=== PATIENT | female | born 1960 | race Caucasian/White ===

== ENCOUNTER 2020-08-12 17:36 | Emergency (ER) | payer MEDICAID ==
[2020-08-12] MEDS ORDERED: ONDANSETRON 4 MG/2 ML VIAL IVP STA (18:11)
[2020-08-12] MEDS ORDERED: SODIUM CHLORIDE 0.9% 1,000 ML IV STA ×2 (18:11→20:29)
[2020-08-12] MEDS ORDERED: HYDROmorphone 1 MG/ML CARPUJECT IVP STA (18:11)
--- NOTE | 2020-08-12 18:14 | ED Physician Documentation ---
PD HPI ABD PAIN - Stated complaint Stated Complaint: SOA/BLOODY STOOL - Chief complaint Chief Complaint: Abd Pain - History obtained from History obtained from: Patient - Additional information Additional information: 60-year-old woman with history of COPD and IBS presents with about a 3 to 4-day illness. It started with mucus in her chest and shortness of breath. She no longer has the mucus, but still feels short of breath. There is no cough. Because of the mucus she has not been able to smoke much. Then over the last 2 days has developed diffuse abdominal pain with a small slightly bloody stools and one episode of emesis today. She denies fevers but has had sweats and chills. Review of Systems Ten Systems: 10 systems reviewed and negative Constitutional: reports: Chills, Fatigue, Sweats. denies: Fever Nose: denies: Rhinorrhea / runny nose, Congestion Throat: denies: Sore throat Cardiac: denies: Chest pain / pressure, Palpitations Respiratory: reports: Dyspnea, Cough. denies: Hemoptysis, Wheezing GI: reports: Abdominal Pain, Nausea, Diarrhea, Bloody / black stool PD PAST MEDICAL HISTORY - Past Medical History Past Medical History: Yes Respiratory: COPD GI: Other (IBS) - Present Medications Home Medications: Ambulatory Orders Medication Instructions Recorded Confirmed Ondansetron Odt [Zofran] 4 mg TL Q6H PRN #10 tab 08/12/20 dexAMETHasone [Decadron] 4 mg PO DAILY #5 tab 08/12/20 - Allergies Allergies/Adverse Reactions: Allergies Allergy/AdvReac Type Severity Reaction Status Date / Time metronidazole [From Flagyl] Allergy Unknown Verified 08/12/20 18:09 Sulfa (Sulfonamide Allergy Unknown Verified 08/12/20 18:09 Antibiotics) - Living Situation Living Situation: reports: Alone - Social History Smoking Status: Current every day smoker - Family History Family history: reports: Non contributory PD ED PE NORMAL - Vitals Vital signs reviewed: Yes - General General: Alert and oriented X 3, No acute distress - HEENT HEENT: PERRL, EOMI - Neck Neck: Supple, no meningeal sign, No bony TTP - Cardiac Cardiac: RRR, No murmur - Respiratory Respiratory: No respiratory distress, Clear bilaterally - Abdomen Abdomen: Soft, Non tender, Other (no bowel tones) - Back Back: No CVA TTP, No spinal TTP - Derm Derm: Normal color, Warm and dry - Extremities Extremities: No edema, No calf tenderness / cord - Neuro Neuro: Alert and oriented X 3, Normal speech Results - Vitals Vitals: Vital Signs - 24 hr 08/12/20 08/12/20 08/12/20 17:46 19:49 21:00 Temperature 37.0 C 36.6 C 36.6 C Heart Rate 76 67 66 Respiratory 24 24 22 Rate Blood Pressure 130/90 H 125/73 124/72 O2 Saturation 100 100 100 08/12/20 21:34 Temperature 36.8 C Heart Rate 66 Respiratory 12 Rate Blood Pressure 130/61 O2 Saturation 98 Oxygen O2 Source Room air - EKG (time done) 1810 Rate: Rate (enter#) (66) Rhythm: NSR [place]: Normal QRS: Normal Ischemia: Normal ST segments - Labs Labs: Laboratory Tests 08/12/20 08/12/20 08/12/20 18:05 18:05 18:05 WBC 10.6 RBC 4.46 Hgb 14.0 Hct 41.8 MCV 93.7 MCH 31.4 H MCHC 33.5 RDW 13.9 Plt Count 387 MPV 10.7 Neut # (Auto) 6.1 Lymph # (Auto) 3.5 [place] # (Auto) 1.0 Eos # (Auto) 0.0 Baso # (Auto) 0.1 Absolute Nucleated RBC 0.00 Nucleated RBC % 0.0 Sodium 135 Potassium 3.5 Chloride 102 Carbon Dioxide 21 Anion Gap 12.0 BUN 10 Creatinine 1.0 Estimated GFR (MDRD) 56 L Glucose 118 H Lactic Acid Calcium 9.2 Total Bilirubin 0.8 AST 38 ALT 29 Alkaline Phosphatase 76 Troponin I High Sens B-Natriuretic Peptide 36 Total Protein 7.3 Albumin 4.2 Globulin 3.1 Albumin/Globulin Ratio 1.4 Lipase 22 Nasal Adenovirus (PCR) Nasal B. parapertussis DNA (PCR) Nasal Coronavir 229E PCR Nasal Coronavir HKU1 PCR Nasal Coronavir NL63 PCR Nasal Coronavir OC43 PCR Nasal Enterovir/Rhinovir PCR Nasal Influenza B PCR Nasal Influenza A PCR Nasal Parainfluen 1 PCR Nasal Parainfluen 2 PCR Nasal Parainfluen 3 PCR Nasal Parainfluen 4 PCR Nasal RSV (PCR) Nasal B.pertussis DNA PCR Nasal C.pneumoniae (PCR) Narinder Human Metapneumo PCR Nasal M.pneumoniae (PCR) Nasal SARS-CoV-2 (PCR) 08/12/20 08/12/20 08/12/20 18:05 18:24 18:38 WBC RBC Hgb Hct MCV MCH MCHC RDW Plt Count MPV Neut # (Auto) Lymph # (Auto) [place] # (Auto) Eos # (Auto) Baso # (Auto) Absolute Nucleated RBC Nucleated RBC % Sodium Potassium Chloride Carbon Dioxide Anion Gap BUN Creatinine Estimated GFR (MDRD) Glucose Lactic Acid 2.0 Calcium Total Bilirubin AST ALT Alkaline Phosphatase Troponin I High Sens 3.0 B-Natriuretic Peptide Total Protein Albumin Globulin Albumin/Globulin Ratio Lipase Nasal Adenovirus (PCR) NOT DETECTED Nasal B. parapertussis DNA (PCR) NOT DETECTED Nasal Coronavir 229E PCR NOT DETECTED Nasal Coronavir HKU1 PCR NOT DETECTED Nasal Coronavir NL63 PCR NOT DETECTED Nasal Coronavir OC43 PCR NOT DETECTED Nasal Enterovir/Rhinovir PCR NOT DETECTED Nasal Influenza B PCR NOT DETECTED Nasal Influenza A PCR NOT DETECTED Nasal Parainfluen 1 PCR NOT DETECTED Nasal Parainfluen 2 PCR NOT DETECTED Nasal Parainfluen 3 PCR NOT DETECTED Nasal Parainfluen 4 PCR NOT DETECTED Nasal RSV (PCR) NOT DETECTED Nasal B.pertussis DNA PCR NOT DETECTED Nasal C.pneumoniae (PCR) NOT DETECTED Narinder Human Metapneumo PCR NOT DETECTED Nasal M.pneumoniae (PCR) NOT DETECTED Nasal SARS-CoV-2 (PCR) NOT DETECTED PD MEDICAL DECISION MAKING - ED course ED course: She presents with shortness of breath, small bloody stools. Her lungs are surprisingly clear despite the diagnosis of COPD. Her abdominal examination is nontender, but bowel sounds are seemingly absent on initial evaluation. Differential diagnosis is broad and includes diverticulitis, colitis, gastroenteritis, small bowel obstruction. I am also worried about PE given that she seems somewhat breathless but has normal breath sounds without wheezing or rhonchi.+ Care to Dr Álvarez at shift change to reeval and f/u on diagnostics. Departure - Departure Disposition: 01 Home, Self Care Clinical Impression: Dehydration, Irritable bowel syndrome Condition: Stable Instructions: ED Dehydration, ED IBS Follow-Up: Telly Miller ARNP [Primary Care Provider] - Prescriptions: dexAMETHasone [Decadron] 4 mg PO DAILY #5 tab Ondansetron Odt [Zofran] 4 mg TL Q6H PRN #10 tab PRN Reason: Nausea / Vomiting Comments: Your symptoms of smoldering abdominal pain and loose stools over the past month are concerning for the possibility of inflammatory bowel disease and the recommendation is that you have a colonoscopy done in follow-up. Discharge Date/Time: 08/12/20 21:52
[2020-08-12 18:17] LABS: BASOPHILS # (AUTO) 0.1 10^3/uL (0.0-0.1); BASOPHILS % (AUTO) 0.6 %; EOSINOPHILS % (AUTO) 0.4 %; LYMPHOCYTES # (AUTO) 3.5 10^3/uL (1.5-3.5); LYMPHOCYTES % (AUTO) 32.5 %; MEAN CORPUSCULAR HEMOGLOBIN 31.4 pg (27.0-31.0); MEAN CORPUSCULAR HGB CONC 33.5 g/dL (32.0-36.0); MEAN CORPUSCULAR VOLUME 93.7 fL (81.0-99.0); MEAN PLATELET VOLUME 10.7 fL (7.9-10.8); NEUTROPHILS # (AUTO) 6.1 10^3/uL (1.5-6.6); NEUTROPHILS % (AUTO) 57.1 %; PLT - PLATELET COUNT 387 10^3/uL (130-450); RED BLOOD COUNT 4.46 10^6/uL (4.20-5.40); RED CELL DISTRIBUTION WIDTH 13.9 % (12.0-15.0); WHITE BLOOD COUNT 10.6 x10^3/uL (4.8-10.8)
[2020-08-12 18:25] LABS: ALBUMIN 4.2 g/dL (3.2-5.5); ALBUMIN/GLOBULIN RATIO 1.4 (1.0-2.2); BILIRUBIN,TOTAL 0.8 mg/dL (0.2-1.0); CALCIUM 9.2 mg/dL (8.5-10.3); TOTAL PROTEIN 7.3 g/dL (6.7-8.2)
--- NOTE | 2020-08-12 18:36 | XRAY Report ---
PROCEDURE: Chest 1 View X-Ray INDICATIONS: COPD TECHNIQUE: One view of the chest was acquired. COMPARISON: None. FINDINGS: Surgical changes and devices: None. Lungs and pleura: No pleural effusions or pneumothorax. No consolidative opacity. Diffuse increased interstitial markings. Prominent lung volumes. Mediastinum: Mediastinal contours appear normal. Heart size is within normal limits. Bones and chest wall: No suspicious bony lesions. Overlying soft tissues appear unremarkable. IMPRESSION: No acute cardiopulmonary abnormality identified. Emphysematous change. Reviewed by: Kang Emerson MD on 08/12/2020 6:35 PM [facility] Approved by: Kang Emerson MD on 08/12/2020 6:35 PM [facility] Station ID: [id number]
[2020-08-12] MEDS ORDERED: IOVERSOL 320 100 ML VIAL IVP ONE ×2 (18:44→19:10)
--- NOTE | 2020-08-12 19:28 | CT Report ---
PROCEDURE: ANGIO CHEST W/WO INDICATIONS: dyspnea, pe protocol CONTRAST: IV CONTRAST: Optiray 320 ml: 100 PO CONTRAST: *NO PO CONTRAST TECHNIQUE: After the administration of intravenous contrast, 2 mm thick sections acquired from the pulmonary api rashid to the posterior costophrenic angles. 3-dimensional maximum intensity projection (MIP) coronal a nd sagittal reformats were then acquired through the thorax. For radiation dose reduction, the follow ing was used: automated exposure control, adjustment of mA and/or kV according to patient size. COMPARISON: Same day CXR and CT abdomen and pelvis with IV contrast. FINDINGS: Image quality: Excellent. Pulmonary arteries: Pulmonary arteries are normal in size, and demonstrate no intraluminal filling d efects to suggest central pulmonary embolism. Lungs and pleura: Subtle background of nodular opacity most pronounced in the upper lobes. For exampl e right upper lobe 3 mm, (); right upper lobe 4 mm, (). No significant emphysematous change a ppreciated. Small cysts in the right lower lobe. No pleural effusions or pneumothorax. Central and p eripheral airways are patent. Mediastinum: Heart size is normal, without pericardial effusion. No mediastinal or hilar adenopathy . Thoracic aorta is normal in caliber and enhancement. Esophagus is normal in caliber, without hiat al hernia. Bones and chest wall: No suspicious bony lesions. Ribs and thoracic spine appear intact throughout. No axillary or supraclavicular adenopathy. Abdomen: Please see separately dictated same day CT abdomen and pelvis. IMPRESSION: 1. No pulmonary embolism. 2. Subtle background of small nodular opacities most pronounced in the upper lobes. This could be due to centrilobular nodules. This raises the possibility of infectious/inflammatory etiology. However, no ground glass opacity. 3. No pleural effusion. Reviewed by: Kang Emerson MD on 08/12/2020 7:26 PM [facility] Approved by: Kang Emerson MD on 08/12/2020 7:26 PM PST Station ID: [id number]
--- NOTE | 2020-08-12 19:34 | CT Report ---
PROCEDURE: Abdomen/Pelvis W INDICATIONS: IV only, diffuse abd pain CONTRAST: IV CONTRAST: Optiray 320 ml: 100 PO CONTRAST: *NO PO CONTRAST TECHNIQUE: After the administration of intravenous contrast, 5 mm thick sections acquired from the diaphragms to the symphysis. 5 mm thick coronal and sagittal reformats were acquired. For radiation dose reducti on, the following was used: automated exposure control, adjustment of mA and/or kV according to tawanna ent size. COMPARISON: Same day CT pulmonary angiogram FINDINGS: Image quality: Excellent. ABDOMEN: Lung bases: Lung bases are clear. Heart size is normal. Solid organs: Liver and spleen are normal in size and enhancement. Several well-circumscribed hepati c hypodense benign cysts. Gallbladder is distended. No calcified gallstones seen. Biliary system is non dilated. Pancreas enhances normally. The pancreatic duct in the head of the pancreas is mildly d ilated measuring 0.6 cm, (8/). The pancreatic duct in the tail is within normal limits. No adrenal nodules. Kidneys demonstrate normal size and enhancement, without hydronephrosis. Peritoneum and bowel: Bowel loops demonstrate normal wall thickness and caliber. A few colonic diver ticuli. Normal caliber of the retrocecal appendix. No free fluid or air. Nodes and vessels: No retroperitoneal or mesenteric adenopathy by size criteria. Aorta and inferior vena cava are normal in size. Miscellaneous: Tiny fat-containing periumbilical hernia. PELVIS: Genitourinary: Bladder wall thickness is normal. Uterus is surgically absent. Miscellaneous: No inguinal hernias or adenopathy. Bones: No suspicious bony lesions. No vertebral body compression fractures. IMPRESSION: 1. Distended gallbladder. No calcified gallstones. 2. Dilated pancreatic duct in the head of the pancreas. However the duct is not significantly dilated in the tail. The clinical significance of this finding is unknown. -MRCP may be helpful for further evaluation. 3. No bowel obstruction. No free fluid. A few colonic diverticuli without evidence of diverticulitis. Reviewed by: Kang Emerson MD on 08/12/2020 7:33 PM [facility] Approved by: Kang Emerson MD on 08/12/2020 7:33 PM [facility] Station ID: [id number]
[2020-08-12 19:46] LABS: C. PNEUMONIAE- RESP PCR PANEL NOT DETECTED
--- NOTE | 2020-08-12 20:57 | ED Physician Documentation ---
PD HPI ABD PAIN - Stated complaint Stated Complaint: SOA/BLOODY STOOL - Chief complaint Chief Complaint: Abd Pain - History obtained from History obtained from: Patient - History of Present Illness Timing - onset: How many days ago (4) Timing - duration: Days (4) Timing - details: Gradual onset, Still present Quality: Cramping, Sharp, Fullness/distended, Pain Location: All over / everywhere Improved by: Laying still Worsened by: Eating, Position, Palpation Associated symptoms: Nausea, Vomiting Similar symptoms before: No diagnosis Recently seen: Not recently seen - Additional information Additional information: 60 y/o female with a history of COPD and irritable bowel has developed abdominal pain nausea and diarrhea (loose stool only) over the past 4 days and has not been able to eat or drink. She arrives to the ED short of breath and in pain. She was worked up by Dr. Gaytan thoroughly including blood work and imaging. Her covid was negative, she did not have PE and she does not have obstruction, diverticulitis or obvious colitis on CT. PD PAST MEDICAL HISTORY - Present Medications Home Medications: Ambulatory Orders Medication Instructions Recorded Confirmed Ondansetron Odt [Zofran] 4 mg TL Q6H PRN #10 tab 08/12/20 dexAMETHasone [Decadron] 4 mg PO DAILY #5 tab 08/12/20 - Allergies Allergies/Adverse Reactions: Allergies Allergy/AdvReac Type Severity Reaction Status Date / Time metronidazole [From Flagyl] Allergy Unknown Verified 08/12/20 18:09 Sulfa (Sulfonamide Allergy Unknown Verified 08/12/20 18:09 Antibiotics) Results - Vitals Vitals: Vital Signs - 24 hr 08/12/20 08/12/20 08/12/20 17:46 19:49 21:00 Temperature 37.0 C 36.6 C 36.6 C Heart Rate 76 67 66 Respiratory 24 24 22 Rate Blood Pressure 130/90 H 125/73 124/72 O2 Saturation 100 100 100 Oxygen O2 Source Room air - Labs Labs: Laboratory Tests 08/12/20 08/12/20 08/12/20 18:05 18:05 18:05 WBC 10.6 RBC 4.46 Hgb 14.0 Hct 41.8 MCV 93.7 MCH 31.4 H MCHC 33.5 RDW 13.9 Plt Count 387 MPV 10.7 Neut # (Auto) 6.1 Lymph # (Auto) 3.5 [place] # (Auto) 1.0 Eos # (Auto) 0.0 Baso # (Auto) 0.1 Absolute Nucleated RBC 0.00 Nucleated RBC % 0.0 Sodium 135 Potassium 3.5 Chloride 102 Carbon Dioxide 21 Anion Gap 12.0 BUN 10 Creatinine 1.0 Estimated GFR (MDRD) 56 L Glucose 118 H Lactic Acid Calcium 9.2 Total Bilirubin 0.8 AST 38 ALT 29 Alkaline Phosphatase 76 Troponin I High Sens B-Natriuretic Peptide 36 Total Protein 7.3 Albumin 4.2 Globulin 3.1 Albumin/Globulin Ratio 1.4 Lipase 22 Nasal Adenovirus (PCR) Nasal B. parapertussis DNA (PCR) Nasal Coronavir 229E PCR Nasal Coronavir HKU1 PCR Nasal Coronavir NL63 PCR Nasal Coronavir OC43 PCR Nasal Enterovir/Rhinovir PCR Nasal Influenza B PCR Nasal Influenza A PCR Nasal Parainfluen 1 PCR Nasal Parainfluen 2 PCR Nasal Parainfluen 3 PCR Nasal Parainfluen 4 PCR Nasal RSV (PCR) Nasal B.pertussis DNA PCR Nasal C.pneumoniae (PCR) Narinder Human Metapneumo PCR Nasal M.pneumoniae (PCR) Nasal SARS-CoV-2 (PCR) 08/12/20 08/12/20 08/12/20 18:05 18:24 18:38 WBC RBC Hgb Hct MCV MCH MCHC RDW Plt Count MPV Neut # (Auto) Lymph # (Auto) [place] # (Auto) Eos # (Auto) Baso # (Auto) Absolute Nucleated RBC Nucleated RBC % Sodium Potassium Chloride Carbon Dioxide Anion Gap BUN Creatinine Estimated GFR (MDRD) Glucose Lactic Acid 2.0 Calcium Total Bilirubin AST ALT Alkaline Phosphatase Troponin I High Sens 3.0 B-Natriuretic Peptide Total Protein Albumin Globulin Albumin/Globulin Ratio Lipase Nasal Adenovirus (PCR) NOT DETECTED Nasal B. parapertussis DNA (PCR) NOT DETECTED Nasal Coronavir 229E PCR NOT DETECTED Nasal Coronavir HKU1 PCR NOT DETECTED Nasal Coronavir NL63 PCR NOT DETECTED Nasal Coronavir OC43 PCR NOT DETECTED Nasal Enterovir/Rhinovir PCR NOT DETECTED Nasal Influenza B PCR NOT DETECTED Nasal Influenza A PCR NOT DETECTED Nasal Parainfluen 1 PCR NOT DETECTED Nasal Parainfluen 2 PCR NOT DETECTED Nasal Parainfluen 3 PCR NOT DETECTED Nasal Parainfluen 4 PCR NOT DETECTED Nasal RSV (PCR) NOT DETECTED Nasal B.pertussis DNA PCR NOT DETECTED Nasal C.pneumoniae (PCR) NOT DETECTED Narinder Human Metapneumo PCR NOT DETECTED Nasal M.pneumoniae (PCR) NOT DETECTED Nasal SARS-CoV-2 (PCR) NOT DETECTED - Rads (name of study) CT ab/pel Radiology: Prelim report reviewed (Impression: 1. Distended gallbladder. No calcified gallstones. 2. Dilated pancreatic duct in the head of pancreas. However the duct is not significantly dilated in the tail. The clinical significance of the finding is unknown. MRCP may be helpful further further evaluation. ), Final report received (3. No bowel obstruction. No free fluid. A few colonic diverticula without evidence of diverticulitis.), EMP read indepedently, See rad report CT angio chest Radiology: Prelim report reviewed (Impression: 1. No pulmonary embolism. 2. Subtle background of the small nodular opacities most pronounced in the upper lobes. This could be due to centrilobular nodules. This raises the possibility of infectious/inflammatory etiology. However no groundglass opacity. 3. No pleural effusion.) chest Radiology: Prelim report reviewed (Impression: No acute cardiopulmonary abnormality identified. Emphysematous change.) Procedures - IVC sono (time) 2019 Bedside IVC sono: IVC measures (cm) (0.88), IVC collapsed c insp (cm) (complete), Dehydration (est 2 liter deficit after one liter has been given) PD MEDICAL DECISION MAKING - ED course Complexity details: reviewed results, re-evaluated patient, considered differential, d/w patient ED course: 60 y/o female with COPD presents with shortness of air and abdominal pain with 4 days of not eating and she is significantly dehydrated. She is administered saline with improvement in her shortness of breath. I suspect she was augmenting her blood supply by hyperventilating and she acknowledges this feeling. Since she has received hydration she is thinking more clearly and no longer anxious and hyperventilating. Her pain is some improved. Her imaging is thorough and does not demonstrate any particular specific etiology for abdominal pain or shortness of breath with the exception of emphysematous changes. Her gallbladder is distended but without stone, wall thickening, tenderness or aniyah-cholic fluid. There are a few loops of fluid filled intestine with thickened wall. Not impressive but with the patients complaint of mucousy stool and pain I have elected to provide a short term anti-inflammation with decadron and we will have the patient follow up with her PMD and schedule an over-due colonoscopy. Departure - Departure Disposition: 01 Home, Self Care Clinical Impression: Dehydration Irritable bowel syndrome Qualifiers: Irritable bowel syndrome type: with diarrhea Qualified Code(s): K58.0 - Irritable bowel syndrome with diarrhea Condition: Stable Instructions: ED Dehydration, ED IBS Follow-Up: Telly Miller ARNP [Primary Care Provider] - Prescriptions: dexAMETHasone [Decadron] 4 mg PO DAILY #5 tab Ondansetron Odt [Zofran] 4 mg TL Q6H PRN #10 tab PRN Reason: Nausea / Vomiting Comments: Your symptoms of smoldering abdominal pain and loose stools over the past month are concerning for the possibility of inflammatory bowel disease and the recommendation is that you have a colonoscopy done in follow-up.
[2020-08-12] MEDS ORDERED: DEXAMETHASONE 10 MG/ML VIAL IVP STA (21:07)
[2020-08-12 21:35] VITALS: BP 130/61
== END 2020-08-12 21:52 | disposition home or self-care (01) ==
LOC: ED 17:36
DX: E86.0 Dehydration (principal); K58.0 Irritable bowel syndrome with diarrhea; J43.9 Emphysema, unspecified; F17.200 Nicotine dependence, unspecified, uncomplicated; Z20.822 Contact with and (suspected) exposure to COVID-19
CPT/HCPCS: 0202U; 71045; 71275; 74177; 80053; 83605; 83690; 83880; 84484; 85025; 93005; 96361; 96374; 96375; 99284; J1170; Q9967